=== PATIENT | female | born 1970 | race Caucasian/White ===

== ENCOUNTER 2023-09-03 10:30 | Outpatient (CLI) | payer OTHER, SELFPAY ==
--- NOTE | 2023-09-03 10:30 | MM_ITS ---
WS: [id number] BILATERAL 3D TOMOSYNTHESIS DIGITAL SCREENING MAMMOGRAPHY WITH CAD CLINICAL INFORMATION: SCREENING HISTORY: Screening mammogram. No current complaints. COMPARISON: New baseline TECHNIQUE: Bilateral CC and MLO views. FINDINGS: The breasts are composed of heterogeneous fibroglandular density tissue, which can limit the detectio n of small underlying mass lesions. Slightly spiculated asymmetric density upper quadrant LEFT breast best seen on the MLO view. Recommend LEFT breast diagnostic mammography spot compression views and u ltrasound if persistent. Punctate and lucent centered calcifications. Vascular calcification. Unremarkable RIGHT breast. MM/[id number] IMPRESSION: BI-RADS: 0-Incomplete: Need additional imaging evaluation FOLLOW UP: Need Additional Imaging Recommend LEFT breast diagnostic mammography spot compression views and ultraso und if persistent.
== END 2023-09-03 10:31 | disposition home or self-care (01) ==
LOC: MOBLMAM 10:39
PROVIDERS: PCP Physician Assistant; Visit Provider Physician Assistant
DX: Z12.31 Encounter for screening mammogram for malignant neoplasm of breast (principal); R92.332 Mammographic heterogeneous density, left breast; R92.8 Other abnormal and inconclusive findings on diagnostic imaging of breast
CPT/HCPCS: 77063; 77067

== ENCOUNTER 2023-10-10 14:18 | Outpatient (CLI) | payer OTHER, SELFPAY ==
--- NOTE | 2023-10-10 14:29 | MM_ITS ---
WS: [id number] LEFT 3D TOMOSYNTHESIS DIGITAL MAMMOGRAPHY WITH CAD CLINICAL INFORMATION: INCONCLUSIVE MAMMOGRAM HISTORY: Additional views COMPARISON: 08/07/2023 TECHNIQUE: 3 views of the left breast were obtained. FINDINGS: Scattered fibroglandular densities of the left breast. Again seen is the previously described asymmet jose density upper quadrant LEFT breast best seen on the MLO view. This appears unchanged. Ultrasound is pending. ULTRASOUND BREAST LEFT TECHNIQUE: Ultrasound left breast focused area of concern. CLINICAL INFORMATION: INCONCLUSIVE MAMMOGRAM FINDINGS: Ultrasound upper outer quadrant LEFT breast. Normal underlying parenchymal tissue. No cystic or solid lesions. No suspicious lesions to target for biopsy. Recommend return to annual screening mammography. MM/[id number] IMPRESSION: BI-RADS: 2-Benign FOLLOW UP: 1 Year Follow-up Recommend return to annual screening mammography.
== END 2023-10-10 14:19 | disposition home or self-care (01) ==
LOC: RAD 14:19
PROVIDERS: PCP Physician Assistant; Visit Provider Physician Assistant
DX: R92.2 Inconclusive mammogram (principal); R92.322 Mammographic fibroglandular density, left breast; N64.89 Other specified disorders of breast
CPT/HCPCS: 76642; 77061; G0279